=== PATIENT | female | born 1980 | race Caucasian/White ===

== ENCOUNTER 2023-11-03 10:57 | Emergency (ER) | payer BC, SELFPAY ==
[2023-11-03 11:11] VITALS: BP 134/96
[2023-11-03 11:29] VITALS: BMI 22.1
--- NOTE | 2023-11-03 12:17 | ED.GENMED ---
History of Present Illness
General
Chief Complaint: Swelling
Source: patient
Time Seen by Provider: 11/03/23 11:58
Travel History
Have you had any contact with someone who has COVID-19?: No
Do you have any symptoms of coronavirus? Fever > 100 degrees, chills, cough, shortness of breath, sore throat, loss of taste or smell, muscle aches, or headache?: No
History of Present Illness
History of Present Illness:
42-year-old female presenting to the emergency department for evaluation of left-sided facial pain and swelling which she states is likely due to her already known dental infections that she states was going to have dental surgery for around a year
or so ago but her daughter was diagnosed with a brain tumor and was unable to get to the appointment to get the procedure done. She states that over time she would intermittently have pain discomfort but never to this extent. She did take some
Tylenol for pain prior to arrival. She has no other concerns including fevers, difficulty swallowing, traumatic injuries.
Past History
Past History
ED Past Medical History: None
ED Past Surgical History: Gynecological
Social History
Tobacco: Smoker
Alcohol: None
Drug: None
Personal:
Living: with family
Review of Systems
Review of Systems
All Other Systems: ROS reviewed and negative except as documented in HPI and ROS
Phy Exam
Physical Exam
Physical Exam:
GENERAL: Alert , in no apparent distress
EYE: conjunctiva clear
Head: Normocephalic atraumatic. STS of the maxillary region left side of face
NECK: Supple,
ENT: mmm. Poor dentition, multiple rotted teeth on b/l upper and lower jaw. No fluctuance
LUNGS: no acute respiratory distress
NEUROLOGICAL: Alert and oriented
SKIN: Warm and dry, skin intact.
MUSCULOSKELETAL: well perfused.
PSYCH: Normal and appropriate interaction.
Scores
Heart Failure Risk
Heart Failure Risk Score: Not Applicable
Heart Score for Chest Pain Patients
STEMI patient?: Not applicable
Withdrawal Assessment of Alcohol
Withdrawal Assessment Completed?: Not applicable
Course
Orders/Labs/Results
Orders:
Orders
11/03/23 12:17
Ibuprofen [Motrin] 800 mg PO NOW STA
Vital Signs
Initial and Last Documented VS:
Initial Vital Signs
Temp Pulse Resp BP Pulse Ox
98.2 F 96 18 134/96 99
11/03/23 11:11 11/03/23 11:11 11/03/23 11:11 11/03/23 11:11 11/03/23 11:11
Last Documented Vital Signs
Temp Pulse Resp BP Pulse Ox
98.2 F 96 18 134/96 99
11/03/23 11:11 11/03/23 11:11 11/03/23 11:11 11/03/23 11:11 11/03/23 11:11
MDM/Problems Addressed
Differential Diagnosis Includes:
Dental caries, dental abscess, cellulitis
MDM/Problems Addressed:
42-year-old female presenting to the emergency department for evaluation of left-sided facial swelling and dental pain. She is already known multiple dental caries that have already been recommended for multiple tooth extractions. She still has
the information for her oral surgeon and will contact them tomorrow. In the meantime we will prescribe Pen-VK, Tylenol 3 for pain as needed and chlorhexidine oral rinse. Stable for discharge home and aware of return precautions.
*Pulse Oximetry
Patient hypoxic: no
*Critical Care Note
Total Time (30-74mins, 75-104mins- exclusive of procedures): Not Applicable
ED Attending Note
-
Portions of this chart may have been created with voice recognition software.� Occasional wrong word or��sound alike� substitutions may have occurred due to the inherent limitations of voice recognition software.
Discharge Plan
Departure
Patient Disposition: Home (Routine Discharge)
Date of Disposition: 11/03/23
Time of Disposition: 12:17
Patient with high blood pressure during this ER visit?: Yes
Discharge Problem:
Dental caries
Instructions: Tooth Decay, Adult (DC)
Prescriptions:
New
penicillin V potassium 500 mg tablet
500 mg PO TID Qty: 30 0RF
acetaminophen-codeine 300-30 mg Tablet
1 tab PO Q4HPRN PRN (Reason: pain) Qty: 7 0RF
chlorhexidine gluconate 0.12 % mouthwash
15 ml mucous membrane DAILY Qty: 750 0RF
No Action
multivitamin [One Daily] 1 EACH tablet
1 ea PO DAILY
levofloxacin 500 MG tablet
500 mg PO DAILY Qty: 6 0RF
metronidazole 500 MG tablet
500 mg PO TID Qty: 20 0RF
Referrals:
Israel Myers DO [Family Provider] -
Interventions
Interventions:
*Risk Screen - Suicide Last Done: 11/03/23 11:30
*General Assessment Last Done: 11/03/23 11:11
*Neglect/Abuse Screening Last Done: 11/03/23 11:30
ED- Fall Risk Assessment Last Done: 11/03/23 11:30
*ED COVID-19 Vaccine History Last Done: 11/03/23 11:15
*Nursing Disposition Last Done: 11/03/23 12:26
ED- Cardiac Assessment Last Done: 11/03/23 11:32
ED- Pulmonary Assessment Last Done: 11/03/23 11:32
ED-Skin Assessment Last Done: 11/03/23 11:33
Discharge Date and Time
Discharge Date/Time: 11/03/23 12:27
Print Language: KOREAN
[2023-11-03] MEDS: MOTRIN 800 MG PO (12:24)
== END 2023-11-03 12:27 | disposition home or self-care (01) ==
LOC: EMR 10:57
PROVIDERS: EMERGENCY PHYSICIAN Emergency Medicine; FAMILY PHYSICIAN Family Medicine
DX: K02.9 Dental caries, unspecified (principal); F17.200 Nicotine dependence, unspecified, uncomplicated
CPT/HCPCS: 99282

== ENCOUNTER → 2024-09-05 09:17 | Outpatient (REF) | payer BC, SELFPAY | LOC: WDC 09:17 | PROVIDERS: ATTENDING PHYSICIAN Obstetrics & Gynecology | DX: Z12.31 Encounter for screening mammogram for malignant neoplasm of breast (principal) | CPT/HCPCS: 77063; 77067 ==

== ENCOUNTER → 2024-12-08 14:00 | Outpatient (REF) | payer BC, SELFPAY | LOC: WDC 14:00 | PROVIDERS: ATTENDING PHYSICIAN Obstetrics & Gynecology | DX: R92.30 Dense breasts, unspecified (principal) | CPT/HCPCS: 76641 ==